=== PATIENT | female | born 1990 | race Caucasian/White ===

== ENCOUNTER 2017-03-31 21:51 | Inpatient (IN) | payer OTHER ==
[2017-03-31] MEDS ORDERED: IBUPROFEN 600 MG TAB PO (23:00)
[2017-03-31] MEDS ORDERED: BUTORPHANOL 2 MG INJ IV (23:00)
[2017-03-31] MEDS ORDERED: MISOPROSTOL 200 MCG TAB PR (23:00)
[2017-03-31] MEDS ORDERED: LIDOCAINE 1% (MPF) 30 ML INJ INJ (23:00)
[2017-03-31] MEDS ORDERED: METHYLERGONOVINE 0.2 MG INJ IM (23:00)
[2017-03-31] MEDS ORDERED: CARBOPROST 250 MCG INJ IM (23:00)
[2017-03-31] MEDS ORDERED: OXYTOCIN 30 UNITS/LR 500 ML IV ×2 (23:00)
[2017-03-31] MEDS: LACTATED RINGER'S 1,000 ML IV (23:35)
[2017-03-31] MEDS: AMPICILLIN 2 GM/NS (PMX) 100 ML IV (23:58)
[2017-04-01 00:01] LABS: ADD MAN DIFF? NO
[2017-04-01 00:03] LABS: WHITE BLOOD COUNT 10.3 10^3/ul (4.8-10.8)
[2017-04-01 00:03] LABS: BASOPHILS % 0.2 % (0.0-2.0); EOSINOPHILS # 0.1 10^3/ul (0.0-0.5); EOSINOPHILS % 1.1 % (0.0-7.0); HEMATOCRIT 30.3 % (37.0-47.0); HEMOGLOBIN 10.3 g/dl (12.0-16.0); LYMPHOCYTES # 2.3 10^3/ul (0.8-2.9); LYMPHOCYTES % 22.3 % (15.0-51.0); MEAN CORPUSCULAR HEMOGLOBIN 30.7 pg (29.0-33.0); MEAN CORPUSCULAR VOLUME 90.4 fl (82.0-101.0); MEAN PLATELET VOLUME 11.1 fl (7.4-10.4); MONOCYTE # 0.7 10^3/ul (0.3-0.9); MONOCYTES % 6.8 % (0.0-11.0); NEUTROPHIL # 7.1 10^3/ul (1.6-7.5); PLATELET COUNT 208 10^3/UL (140-415); RED BLOOD COUNT 3.35 10^6/ul (4.20-5.40); RED CELL DISTRIBUTION WIDTH 13.5 % (11.5-14.5)
[2017-04-01 00:51] LABS: HEPATITIS B SURFACE ANTIGEN NEGATIVE (NEGATIVE)
[2017-04-01 00:53] LABS: INR 0.84; PARTIAL THROMBOPLASTIN TIME 27.5 Sec (25.0-35.0); PROTIME 11.6 Sec (11.9-14.9); PT RATIO 0.9
[2017-04-01] MEDS: LACTATED RINGER'S 1,000 ML IV ×3 (00:57→07:46)
[2017-04-01] MEDS ORDERED: FENTAnyl 2MCG/ML-ROPIV 0.2% 100 ML (00:58)
[2017-04-01] MEDS: AMPICILLIN 1 GM/NS (PMX) 50 ML IV ×4 (01:09→15:00)
[2017-04-01] MEDS ORDERED: ONDANSETRON 4 MG INJ IV ×2 (02:00→18:30)
[2017-04-01] MEDS ORDERED: DIPHENHYDRAMINE 50 MG INJ IV (02:00)
[2017-04-01] MEDS ORDERED: NALOXONE (0.4 MG/ML) INJ IV (02:00)
[2017-04-01] MEDS: FENTAnyl 2MCG/ML-ROPIV 0.2% 100 ML BAG EPI (09:12)
[2017-04-01] MEDS: OXYTOCIN 30 UNITS/LR 500 ML IV ×3 (10:38→22:57)
[2017-04-01] MEDS ORDERED: ACETAMINOPHEN 325 MG TAB PO (18:30)
[2017-04-01] MEDS ORDERED: DIBUCAINE 1% 30 GM OINT PR (18:30)
[2017-04-01] MEDS ORDERED: OXYCODONE/ASPIRIN (4.88/325) TAB PO ×2 (18:30)
[2017-04-01] MEDS ORDERED: HYDROCODONE/APAP (5/325) TAB PO ×2 (18:30)
[2017-04-01 18:35] LABS: RAPID PLASMA REAGIN NONREACTIVE (NR)
[2017-04-01] MEDS: WITCH HAZEL/GLYCERIN PAD PR (18:35)
[2017-04-01] MEDS: BENZOCAINE 20% 56 ML SPRAY TOP (18:35)
[2017-04-01] MEDS: IBUPROFEN 600 MG TAB PO (18:36)
[2017-04-01] MEDS: SENNA/DOCUSATE NA (8.6MG/50MG) TAB PO (20:58)
[2017-04-01] MEDS: LANOLIN 7 GM TUBE TOP (22:57)
[2017-04-02] MEDS: IBUPROFEN 600 MG TAB PO ×4 (00:10→18:16)
[2017-04-02 09:04] LABS: ADD MAN DIFF? NO
[2017-04-02 09:20] LABS: WHITE BLOOD COUNT 13.4 10^3/ul (4.8-10.8)
[2017-04-02 09:20] LABS: BASOPHIL # 0.1 10^3/ul (0.0-0.1); BASOPHILS % 0.4 % (0.0-2.0); EOSINOPHILS # 0.1 10^3/ul (0.0-0.5); EOSINOPHILS % 0.8 % (0.0-7.0); HEMOGLOBIN 10.5 g/dl (12.0-16.0); LYMPHOCYTES # 2.5 10^3/ul (0.8-2.9); LYMPHOCYTES % 18.7 % (15.0-51.0); MEAN CORPUSCULAR HEMOGLOBIN 29.9 pg (29.0-33.0); MEAN CORPUSCULAR HGB CONC 32.8 g/dl (32.0-37.0); MEAN CORPUSCULAR VOLUME 91.2 fl (82.0-101.0); MEAN PLATELET VOLUME 11.5 fl (7.4-10.4); MONOCYTE # 0.9 10^3/ul (0.3-0.9); MONOCYTES % 6.4 % (0.0-11.0); NEUTROPHIL # 9.8 10^3/ul (1.6-7.5); NEUTROPHILS % 73.3 % (39.0-77.0); PLATELET COUNT 184 10^3/UL (140-415); RED BLOOD COUNT 3.51 10^6/ul (4.20-5.40); RED CELL DISTRIBUTION WIDTH 13.9 % (11.5-14.5)
[2017-04-02] MEDS: SENNA/DOCUSATE NA (8.6MG/50MG) TAB PO ×2 (09:46→22:39)
[2017-04-03] MEDS: IBUPROFEN 600 MG TAB PO ×3 (00:42→12:17)
[2017-04-03] MEDS: SENNA/DOCUSATE NA (8.6MG/50MG) TAB PO (08:30)
[2017-04-03] MEDS: MEASLES,MUMPS,RUBELLA VACCINE INJ SC* (09:00)
== END 2017-04-03 15:50 | disposition home or self-care (01) | DRG 775 ==
LOC: OBT 21:51 → PP1 04-01 17:47 → L-D 21:52 → OBT 22:22 → L-D 22:22
PROVIDERS: Obstetrics & Gynecology
PROC: 10E0XZZ Delivery of Products of Conception, External Approach (ICD-10-PCS; principal; 2017-04-01)
PROC: 0HQ9XZZ Repair Perineum Skin, External Approach (ICD-10-PCS; 2017-04-01)
PROC: 3E033VJ Introduction of Other Hormone into Peripheral Vein, Percutaneous Approach (ICD-10-PCS; 2017-04-01)
DX: O70.0 First degree perineal laceration during delivery (principal); Z37.0 Single live birth; Z3A.37 37 weeks gestation of pregnancy
CPT/HCPCS: 62319; 85025; 85610; 85730; 86592; 86900; 86901; 87340

== ENCOUNTER 2017-10-19 12:12 | Inpatient (IN) | payer OTHER ==
[2017-10-19] MEDS ORDERED: ACETAMINOPHEN 325 MG TAB PO (13:00)
[2017-10-19] MEDS ORDERED: ONDANSETRON 4 MG INJ IV (13:00)
[2017-10-19] MEDS ORDERED: NACL 0.9% 3 ML SYG IV (13:00)
[2017-10-19] MEDS ORDERED: ONDANSETRON 4 MG TAB PO (13:00)
[2017-10-20 05:40] LABS: ADD MAN DIFF? NO; BASOPHILS % 0.4 % (0.0-2.0); EOSINOPHILS # 0.2 10^3/ul (0.0-0.5); EOSINOPHILS % 3.3 % (0.0-7.0); HEMATOCRIT 34.1 % (37.0-47.0); HEMOGLOBIN 11.3 g/dl (12.0-16.0); LYMPHOCYTES # 2.2 10^3/ul (0.8-2.9); LYMPHOCYTES % 30.8 % (15.0-51.0); MEAN CORPUSCULAR HEMOGLOBIN 29.7 pg (29.0-33.0); MEAN CORPUSCULAR HGB CONC 33.1 g/dl (32.0-37.0); MEAN CORPUSCULAR VOLUME 89.7 fl (82.0-101.0); MEAN PLATELET VOLUME 9.8 fl (7.4-10.4); MONOCYTE # 0.6 10^3/ul (0.3-0.9); MONOCYTES % 7.6 % (0.0-11.0); NEUTROPHIL # 4.1 10^3/ul (1.6-7.5); NEUTROPHILS % 57.5 % (39.0-77.0); PLATELET COUNT 271 10^3/UL (140-415); RED CELL DISTRIBUTION WIDTH 14.3 % (11.5-14.5)
[2017-10-20 05:40] LABS: WHITE BLOOD COUNT 7.2 10^3/ul (4.8-10.8)
[2017-10-20 06:14] LABS: ALANINE AMINOTRANSFERASE 36 IU/L (13-69); ALBUMIN 3.6 g/dl (3.3-4.9); ALBUMIN/GLOBULIN RATIO 1.12; ALKALINE PHOSPHATASE 91 IU/L (42-121); ANION GAP 11 (8-16); ASPARTATE AMINO TRANSFERASE 26 IU/L (15-46); BILIRUBIN,INDIRECT 0.4 mg/dl (0-1.1); BILIRUBIN,TOTAL 0.4 mg/dl (0.2-1.3); BLOOD UREA NITROGEN 10 mg/dl (7-20); CALCIUM 8.7 mg/dl (8.4-10.2); CARBON DIOXIDE 23 mmol/L (21-31); CHLORIDE 108 mmol/L (97-110); CREATININE 0.59 mg/dl (0.44-1.00); GLUCOSE 93 mg/dl (70-220); POTASSIUM 4.2 mmol/L (3.5-5.1); SODIUM 138 mmol/L (135-144); TOTAL PROTEIN 6.8 g/dl (6.1-8.1)
[2017-10-20] MEDS: ENOXAPARIN 40 MG/0.4 ML SYG SC (08:48)
== END 2017-10-20 14:55 | disposition home or self-care (01) | DRG 781 ==
LOC: MS2 12:12
DX: O99.611 Diseases of the digestive system complicating pregnancy, first trimester (principal); Z3A.13 13 weeks gestation of pregnancy
CPT/HCPCS: 74181; 80053; 85025

== ENCOUNTER 2018-04-23 08:59 | Inpatient (IN) | payer OTHER ==
[2018-04-23] MEDS ORDERED: IBUPROFEN 600 MG TAB PO (09:30)
[2018-04-23] MEDS ORDERED: LIDOCAINE 1% (MPF) 30 ML INJ INJ (09:30)
[2018-04-23] MEDS ORDERED: CARBOPROST 250 MCG INJ IM ×2 (09:30→15:30)
[2018-04-23] MEDS ORDERED: BUTORPHANOL 2 MG INJ IV (09:30)
[2018-04-23] MEDS ORDERED: OXYTOCIN 30 UNITS/LR 500 ML IV ×3 (09:30→15:30)
[2018-04-23 09:47] LABS: ADD MAN DIFF? NO
[2018-04-23 09:50] LABS: BASOPHILS % 0.3 % (0.0-2.0); EOSINOPHILS # 0.1 10^3/ul (0.0-0.5); EOSINOPHILS % 1.1 % (0.0-7.0); HEMATOCRIT 31.2 % (37.0-47.0); HEMOGLOBIN 9.9 g/dl (12.0-16.0); LYMPHOCYTES # 1.9 10^3/ul (0.8-2.9); LYMPHOCYTES % 23.2 % (15.0-51.0); MEAN CORPUSCULAR HEMOGLOBIN 28.7 pg (29.0-33.0); MEAN CORPUSCULAR HGB CONC 31.7 g/dl (32.0-37.0); MEAN CORPUSCULAR VOLUME 90.4 fl (82.0-101.0); MEAN PLATELET VOLUME 10.5 fl (7.4-10.4); MONOCYTE # 0.5 10^3/ul (0.3-0.9); MONOCYTES % 6.8 % (0.0-11.0); NEUTROPHIL # 5.4 10^3/ul (1.6-7.5); NEUTROPHILS % 67.8 % (39.0-77.0); PLATELET COUNT 224 10^3/UL (140-415); RED BLOOD COUNT 3.45 10^6/ul (4.20-5.40); RED CELL DISTRIBUTION WIDTH 14.2 % (11.5-14.5)
[2018-04-23] MEDS: LACTATED RINGER'S 1,000 ML IV ×3 (09:51→11:16)
[2018-04-23] MEDS: AMPICILLIN 2 GM/NS (PMX) 100 ML IV (10:00)
[2018-04-23 10:15] LABS: INR 0.87; PROTIME 11.9 Sec (11.9-14.9); PT RATIO 0.9
[2018-04-23 10:16] LABS: PARTIAL THROMBOPLASTIN TIME 27.5 Sec (23.0-35.0)
[2018-04-23] MEDS ORDERED: FENTAnyl 2MCG/ML-ROPIV 0.2% 100 ML (11:27)
[2018-04-23 11:29] LABS: HEPATITIS B SURFACE ANTIGEN NEGATIVE (NEGATIVE)
[2018-04-23] MEDS ORDERED: NALOXONE (0.4 MG/ML) INJ IV (12:00)
[2018-04-23] MEDS: AMPICILLIN 1 GM/NS (PMX) 50 ML IV ×2 (13:30→17:30)
[2018-04-23] MEDS: FENTAnyl 2MCG/ML-ROPIV 0.2% 100 ML BAG EPI (14:53)
[2018-04-23] MEDS: MINERAL OIL LIGHT 10 ML VIAL TOP (15:00)
[2018-04-23] MEDS: OXYTOCIN 30 UNITS/LR 500 ML IV ×2 (15:06→15:16)
[2018-04-23] MEDS: METHYLERGONOVINE 0.2 MG INJ IM (15:13)
[2018-04-23] MEDS: MISOPROSTOL 200 MCG TAB PR (15:14)
[2018-04-23] MEDS: LACTATED RINGER'S 1,000 ML IV* (15:18)
[2018-04-23] MEDS ORDERED: DIPHENHYDRAMINE 50 MG INJ IV (15:30)
[2018-04-23] MEDS ORDERED: SENNA/DOCUSATE NA (8.6MG/50MG) TAB PO (15:30)
[2018-04-23] MEDS ORDERED: DIPHENHYDRAMINE 25 MG CAP PO (15:30)
[2018-04-23] MEDS ORDERED: HYDROCODONE/APAP (5/325) TAB PO ×2 (15:30)
[2018-04-23] MEDS ORDERED: MAGNESIUM HYDROXIDE 30ML CUP PO (15:30)
[2018-04-23] MEDS: ONDANSETRON 4 MG INJ IV (15:30)
[2018-04-23] MEDS ORDERED: NA PHOSPHATE/BIPHOS 133 ML ENEMA PR (15:30)
[2018-04-23] MEDS ORDERED: DIBUCAINE 1% 30 GM OINT TOP (15:30)
[2018-04-23] MEDS ORDERED: ONDANSETRON 4 MG TAB PO (15:30)
[2018-04-23] MEDS ORDERED: MISOPROSTOL 200 MCG TAB PR (15:30)
[2018-04-23] MEDS: IBUPROFEN 600 MG TAB PO ×2 (15:54→23:47)
[2018-04-23] MEDS: WITCH HAZEL/GLYCERIN PAD PR (18:24)
[2018-04-23] MEDS: BENZOCAINE 20% 56 ML SPRAY TOP (18:25)
[2018-04-23] MEDS: LANOLIN HPA 1 PKT TOP (18:25)
[2018-04-23 19:56] LABS: RAPID PLASMA REAGIN NONREACTIVE (NR)
[2018-04-23] MEDS: SENNA/DOCUSATE NA (8.6MG/50MG) TAB PO (21:25)
[2018-04-24] MEDS: IBUPROFEN 600 MG TAB PO ×3 (05:17→17:31)
[2018-04-24 06:58] LABS: ADD MAN DIFF? NO
[2018-04-24 07:01] LABS: BASOPHILS % 0.2 % (0.0-2.0); EOSINOPHILS # 0.1 10^3/ul (0.0-0.5); EOSINOPHILS % 0.6 % (0.0-7.0); HEMATOCRIT 29.2 % (37.0-47.0); HEMOGLOBIN 9.2 g/dl (12.0-16.0); LYMPHOCYTES # 2.2 10^3/ul (0.8-2.9); LYMPHOCYTES % 17.4 % (15.0-51.0); MEAN CORPUSCULAR HEMOGLOBIN 28.8 pg (29.0-33.0); MEAN CORPUSCULAR HGB CONC 31.5 g/dl (32.0-37.0); MEAN CORPUSCULAR VOLUME 91.3 fl (82.0-101.0); MEAN PLATELET VOLUME 10.7 fl (7.4-10.4); MONOCYTE # 0.8 10^3/ul (0.3-0.9); MONOCYTES % 6.8 % (0.0-11.0); NEUTROPHIL # 9.2 10^3/ul (1.6-7.5); NEUTROPHILS % 74.4 % (39.0-77.0); PLATELET COUNT 200 10^3/UL (140-415); RED CELL DISTRIBUTION WIDTH 14.3 % (11.5-14.5)
[2018-04-24 07:01] LABS: WHITE BLOOD COUNT 12.4 10^3/ul (4.8-10.8)
[2018-04-24] MEDS: SENNA/DOCUSATE NA (8.6MG/50MG) TAB PO ×2 (11:31→21:53)
[2018-04-25] MEDS: IBUPROFEN 600 MG TAB PO ×2 (00:01→06:17)
[2018-04-25] MEDS: DIPHTH/TET/ACEL PERTUSS (ADULT) 0.5 ML VIAL IM* (09:47)
[2018-04-25] MEDS: VARICELLA VACCINE LIVE/PF 1,350 UNIT/0.5 ML ML SC* (09:48)
[2018-04-25] MEDS: MEASLES,MUMPS,RUBELLA VACCINE INJ SC* (09:48)
[2018-04-25] MEDS: SENNA/DOCUSATE NA (8.6MG/50MG) TAB PO (09:49)
== END 2018-04-25 12:35 | disposition home or self-care (01) | DRG 807 ==
LOC: OBT 08:59 → L-D 08:59 → OBT 09:17 → L-D 09:10 → PP1 16:45
PROVIDERS: Specialist
PROC: 10E0XZZ Delivery of Products of Conception, External Approach (ICD-10-PCS; principal; 2018-04-23)
DX: O80 Encounter for full-term uncomplicated delivery (principal); Z37.0 Single live birth; Z3A.38 38 weeks gestation of pregnancy
CPT/HCPCS: 62319; 85025; 85610; 85730; 86592; 86850; 86900; 86901; 87340